=== PATIENT | male | born 1970 | race American Indian/Alaskan Native ===

== ENCOUNTER 2019-03-28 18:57 | Emergency (ER) | payer SELFPAY ==
[~2019-03-28 18:57] MED LIST: EPINEPHrine 1:10,000 1 MG/10 ML SYRINGE ONE; NALOXONE 2 MG/2 ML INJ ONE; SODIUM BICARB 8.4% 50 MEQ/50 ML SYRINGE IV ONE
[2019-03-28] MEDS ORDERED: SODIUM CHLORIDE 0.9% 1000 ML 2,000 ML ONE (19:10)
[2019-03-28] MEDS ORDERED: NORepinephrine/NS 4 MG-250 ML 4 MG/250 ML BAG IV ONE (19:18)
[2019-03-28] MEDS ORDERED: SODIUM CHLORIDE 0.9% 1000 ML 1,000 ML IV ONE ×4 (19:30→23:45)
[2019-03-28] MEDS ORDERED: DOPamine/D5W 800 MG/250 ML 800 MG/250 ML BAG IV ONE (19:32)
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
[2019-03-28] MEDS ORDERED: NORepinephrine/NS 4 MG-250 ML 4 MG/250 ML BAG IV SCH (20:00)
--- NOTE | 2019-03-28 20:04 | XRay Report ---
CHEST 1 VIEW 7:34 PM INDICATION / CLINICAL INFORMATION: Chest pain and ET tube placement. COMPARISON: None available. FINDINGS: SUPPORT DEVICES: There is an endotracheal tube with the tip 6 cm above the kasey. HEART / MEDIASTINUM: Median sternotomy and heart size at the upper limits of normal. Pulmonary vascul ature is normal. The aorta is normal in caliber. LUNGS / PLEURA: Minimal right basilar subsegmental atelectasis. The lungs are otherwise clear. No pne umothorax. ADDITIONAL FINDINGS: Small metallic density overlying the right lower lateral ribs. IMPRESSION: 1. Endotracheal tube in good position. 2. Mild right basilar subsegmental atelectasis. Signer Name: Lorenzo Su MD Signed: 03/28/2019 7:59 PM Workstation Name: [id number]
[2019-03-28] MEDS ORDERED: ASPIRIN 300 MG RECT SUPP PR ONE (20:12)
[2019-03-28 20:19] LABS: INR 1.46 (0.87-1.13)
[2019-03-28 20:20] LABS: Partial Thromboplastin Time 39.8 Sec. (24.2-36.6)
[2019-03-28 20:39] LABS: Creatine Kinase MB 5.1 ng/mL (0.0-4.0)
[2019-03-28 20:40] LABS: Alanine Aminotransferase 221 units/L (7-56); Albumin 3.6 g/dL (3.9-5)
[2019-03-28 20:41] LABS: BUN/Creatinine Ratio 16; Blood Urea Nitrogen 21 mg/dL (9-20); Calcium 9.2 mg/dL (8.4-10.2); Hemolysis Index 13
[2019-03-28 21:07] LABS: Bilirubin,Direct < 0.2 mg/dL (0-0.2)
[2019-03-28 21:21] LABS: ABG Base Excess -8.4 mmol/L (-2.0-3.0); ABG HCO3 21.7 mmol/L (20.0-26.0); ABG Methemoglobin 0.7 % (0.0-1.5); ABG Oxygen Saturation 99.5 % (95.0-99.0); ABG PCO2 66.7 mm Hg
[2019-03-28] MEDS ORDERED: ONDANSETRON 4 MG/2 ML INJ IV PRN (21:24)
[2019-03-28] MEDS ORDERED: ACETAMINOPHEN 325 MG TAB PO PRN (21:24)
[2019-03-28] MEDS ORDERED: DEXTROSE 50% IN WATER (25GM) 50 ML SYRINGE IV PRN (21:45)
[2019-03-28 21:46] LABS: ABG PH 7.129 pH Units (7.350-7.450); ABG PO2 417.9 mm Hg (80.0-90.0)
[2019-03-28] MEDS ORDERED: hydrALAZINE 20 MG/1 ML INJ IV PRN (21:57)
[2019-03-28] MEDS ORDERED: hydrALAZINE 20 MG/1 ML INJ IV ONE (21:58)
[2019-03-28] MEDS ORDERED: INSULIN LISPRO 100 UNIT/ML SUB-Q SCH (22:00)
[2019-03-28] MEDS ORDERED: FAMOTIDINE 20 MG/2 ML INJ IV SCH (22:00)
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
[2019-03-28 22:20] LABS: Hematocrit 45.3 % (35.5-45.6); Hemoglobin 14.5 gm/dl (11.8-15.2); Mean Corpuscular HGB Conc 32 % (32-34); Mean Corpuscular Volume 86 fl (84-94); Platelet Count 143 K/mm3 (140-440); Red Cell Distribution Width 14.5 % (13.2-15.2)
[2019-03-28] MEDS ORDERED: hydrALAZINE 20 MG/1 ML INJ ONE (22:20)
[2019-03-28] MEDS ORDERED: FAMOTIDINE 20 MG/2 ML INJ IV ONE (22:20)
[2019-03-28 22:55] LABS: Band Neutrophils # (Manual) 1.7 K/mm3; Basophils % (Manual) 0 % (0.0-1.8); Eosinophils % (Manual) 0 % (0.0-4.3); Total Cells Counted 100
[2019-03-28 22:56] LABS: Anisocytosis 1+
[2019-03-28] MEDS ORDERED: SODIUM CHLORIDE 0.45% 1000 ML 1,000 ML IV SCH (23:00)
--- NOTE | 2019-03-28 23:17 | Cat Scan Report ---
CT HEAD WITHOUT CONTRAST INDICATION / CLINICAL INFORMATION: AMS. Cardiac arrest TECHNIQUE: All CT scans at this location are performed using CT dose reduction for ALARA by means of automated e xposure control. COMPARISON: None available. FINDINGS: HEMORRHAGE: There is bilateral subarachnoid hemorrhage within the sulci and basilar cisterns. EXTRA-AXIAL SPACES: Effaced. VENTRICULAR SYSTEM: Within normal limits. No significant mass effect at this time. CEREBRAL PARENCHYMA: Diffuse loss of the morfin-white differentiation throughout both cerebral hemisphe res and the cerebellum. Cerebral edema. MIDLINE SHIFT OR HERNIATION: No midline shift but mild cerebellar tonsil herniation. CEREBELLUM / BRAINSTEM: Cerebellar edema with loss of morfin-white differentiation. ORBITS: Normal as visualized. SOFT TISSUES of HEAD: No significant abnormality. CALVARIUM: No significant abnormality. PARANASAL SINUSES / MASTOID AIR CELLS: Normal as visualized. ADDITIONAL FINDINGS: None. IMPRESSION: 1. Bilateral subarachnoid hemorrhage with diffuse cerebral edema and loss of morfin-white differentiati on. 2. Mild cerebellar tonsil herniation. CRITICAL RESULT: Time of Discovery (SKOOG MACHINE OPERATOR/CDT): 10:05 PM Time of Communication (SKOOG MACHINE OPERATOR/CDT): 10:09 PM Licensed Practitioner Receiving Report: Dr. Venegas in the ED Read Back Performed: Yes. Signer Name: Fracisco Steel MD Signed: 03/28/2019 11:12 PM Workstation Name: [id number]
[2019-03-28] MEDS ORDERED: SODIUM CHLORIDE 0.9% 1000 ML 1,000 ML ONE (23:41)
[2019-03-28] MEDS ORDERED: SODIUM CHLORIDE 0.9% 1000 ML 1,000 ML IV SCH (23:45)
--- NOTE | 2019-03-29 00:21 | Cat Scan Report ---
CTA neck without and with intravenous contrast material CLINICAL HISTORY: MAIN: AMS.100 ML OMNIPAQUE 350 TECHNIQUE: Following acquisition of a timing bolus 0.625 mm thick contiguous axial scans were obtained from aort ic arch to the skull base during rapid bolus intravenous contrast infusion. In addition to evaluation of axial source images multiplanar reconstructions were produced and reviewed for this report. 3-D M IP reconstructions were produced. These were also reviewed for this report. FINDINGS: No abnormalities are seen at the origins of the great vessels. Common carotid arteries, carotid bifurcations and cervical portions of the internal carotid arteries all have a normal appearance. There is no indication of hemodynamically significant stenosis. Normal and symmetrical vertebral arteries are present. There is no indication of stenosis along the c ourse of the vertebral arteries. Both vertebral arteries contribute to the basilar artery origin. The basilar artery has an unremarkable appearance. The degree of stenosis, if any, is determined utilizing NASCET like criteria. In this case there is no indication of hemodynamically significant stenosis at the carotid bifurcations or elsewhere. Evaluation of the nonvascular soft tissue structures is remarkable for the presence of an endotrachea l tube. Tube tip is located about 5 cm above the kasey.. Fluid accumulation in the nasopharynx and o ropharynx secondary to the presence of the endotracheal tube. There is no indication of cervical lymp hadenopathy. No abnormalities are seen along the course of the airway. Visualized portions of the par otid glands and the submandibular salivary glands have a normal appearance. Thyroid gland has a edd l appearance. Evaluation of the lung apices reveals bullous changes and biapical parenchymal scarring . Evaluation of the cervical spine is remarkable for bridging anterior osteophytes results in fusion at the C3-4 level. IMPRESSION: 1. No indication of hemodynamically significant stenosis at the carotid bifurcations or elsewhere. Contrast dose report: Omnipaque 350: 100 ml, administered intravenously All CT examinations performed at this facility utilize modulated dose reduction, iterative reconstruc tion or weight-based dosing, as appropriate, to obtain a radiation dose which is as low as can reason ably be achieved. Signer Name: Kevin Bishop MD Signed: 03/29/2019 12:16 AM Workstation Name: [id number]
[2019-03-29] MEDS ORDERED: LORazepam 2 MG/ML VIAL IV PRN (00:23)
--- NOTE | 2019-03-29 00:31 | Cat Scan Report ---
CTA head with intravenous contrast CLINICAL HISTORY: Intracranial hemorrhage TECHNIQUE: 0.625 mm thick contiguous axial scans were obtained from the skull base to the skull vertex during ra pid bolus administration of intravenous contrast material. Multiplanar reconstructions were produced in the coronal and sagittal planes. In addition 3 plane MIP instructions were produced and reviewed f or this report. The axial source images and reconstructed images were reviewed for this report. All CT scans at this location are performed using CT dose reduction for ALARA by means of automated e xposure control. FINDINGS: Findings indicate the presence of vasospasm. The proximal M1 and A1 segments of the middle cerebral a rteries and anterior cerebral arteries are diminished in caliber. The left A1 segment of the anterior cerebral artery has a beaded appearance consistent with vasospasm. These vessels return to more norm al caliber distally. There is no indication of large vessel occlusion. Decreased opacification of the dural venous sinuses is noted. While this could be due to rapid scan a cquisition shortly after initiation of contrast bolus, the possibility of prolonged intracranial circ ulation time should also be considered. This could be due to extensive cerebral edema as described on head CT reported separately. While head CT findings suggest the presence of blood in the subarachnoid space it is also possible th at the increased attenuation in throughout subarachnoid space and the basilar cisterns, sylvian ciste rns, sylvian fissures and suprasellar cistern may be due to intravascular blood made to appear abnorm ally dense secondary to adjacent edematous brain. There is no evidence of aneurysm or other vascular malformation. IMPRESSION: 1. Findings of vasospasm involving the proximal A1 and M1 segments of the middle and anterior cerebra l arteries as described above. 2. Decreased contrast opacification of the dural venous sinuses suggests the possibility of prolonged intercranial circulation time. 3. Diffuse cerebral edema with effacement of cortical sulci, diminutive caliber of the ventricular sy stem and diffuse loss of morfin-white distinction. 4. No indication of aneurysm or arteriovenous malformation. CONTRAST DOSE REPORT: Omnipaque 350: 100 ml administered intravenously. Signer Name: Kevin Bishop MD Signed: 03/29/2019 12:27 AM Workstation Name: [id number]
[2019-03-29] MEDS ORDERED: NORepinephrine/NS 4 MG-250 ML 4 MG/250 ML BAG IV SCH (01:00)
--- NOTE | 2019-03-29 01:05 | Discharge Summary ---
Providers - Providers Date of Admission: 03/28/19 21:24 Date of discharge: 03/29/19 Attending physician: LIONEL FOLEY 03/28/19 22:05 Consult to Cardiology [CONS] Routine Consulting Provider: SHYANNE MUIR Reason For Exam: CARDIAC ARREST Consult to Physician [CONS] Routine Comment: Consulting Provider: SHAWN DUPREE Physician Instructions: Reason For Exam: HYPOXIA 03/28/19 22:07 Consult to Dietitian/Nutrition [CONS] Routine Physician Instructions: Reason For Exam: Reason for Consult: Write/Manage Tube Feeding 03/28/19 23:16 Occupational Therapy Evaluate and Treat [CONS] Routine Comment: Reason For Exam: Neuro deficits Physical Therapy Evaluation and Treat [CONS] Routine Comment: Reason For Exam: Neuro deficits [facility] Condition: Critical Pertinent studies: Head CT Scan: Bilateral subarachnoid hemorrhage with diffuse cerebral edema and slight herniation Hospital course: Discharge diagnosis: Acute intracranial hemorrhage with cerebral edema and slight herniation -On hemorrhagic stroke protocol, [facility] -Tele-neurology consulted and recommendation is to transfer pt to a higher level of care facility with neurosurgery service Status post asystole cardiac arrest -Patient successfully resuscitated -cont serial troponin -On statin, no aspirin due to acute bleed -echo pending Acute respiratory failure with hypoxia -status post intubation on MV Acute metabolic/toxic encephalopathy -likely 2/2 acute stroke Hypovolemic shock -on IV pressor, will monitor BP Transaminitis/Coagulopathy -likely due to acute process, will monitor Hyperglycemia -? DM, will check hba1c level -on SSI and IVF Metabolic acidosis -on IVF, will monitor Reported h/o Asthma -acute exacerbation not suspected Disp: Pt was transferred to [facility] Disposition: DC/TX-70 ANOTHER TYPE HLTHCARE Time spent for discharge: 40 minutes Core Measure Documentation - Palliative Care Palliative Care/ Comfort Measures: Not Applicable - Core Measures Any of the following diagnoses?: stroke - Stroke Discharge Requirements Statin for LDL = or >70 mg/dl on DC: Yes Anticoag for atrial fib/atrial flutter: Not Applicable Antithrombotic for ischemic stroke: No Reason for no antithrombotic on DC: Medical Contraindication (bleed) Exam - Physical Exam Narrative exam: General appearance: Present: no acute distress - EENT Eyes: Present: irregular pupil (nonreactive pupils) ENT: other (pt is intubated) - Neck Neck: Present: supple - Respiratory Respiratory effort: normal Respiratory: bilateral: CTA, diminished - Cardiovascular Rhythm: regular (with sinus tachycardia) Heart Sounds: Present: S1 & S2 - Extremities Extremities: No edema Peripheral Pulses: within normal limits - Abdominal General gastrointestinal: Present: soft, non-tender, normal bowel sounds Male genitourinary: Present: deferred - Rectal Rectal Exam: deferred - Integumentary Integumentary: Present: warm, dry (midline abdominal healing wounds noted) - Psychiatric Psychiatric: other (could not be obtained because patient is intubated and unresponsive) - Neurologic Neurologic: other (could not be obtained because patient is intubated and unresponsive) - Constitutional Vitals: Temp Pulse Resp BP Pulse Ox 94.8 F L 132 H 27 H 116/73 97 03/28/19 20:00 03/28/19 23:41 03/28/19 23:41 03/28/19 23:41 03/28/19 23:41 - Respiratory Respiratory: bilateral: CTA Plan
[2019-03-29 01:19] LABS: Creatine Kinase MB 114.4 ng/mL (0.0-4.0)
[2019-03-29 01:25] VITALS: BP 80/44
[2019-03-29 01:36] LABS: Bilirubin,Urine NEG (Negative); Blood,Urine MOD (Negative); Color,Urine Amber (Yellow); Mucus,Urine FEW /HPF; Urobilinogen,Urine < 2.0 mg/dL (<2.0)
[2019-03-29 01:43] LABS: Benzodiazepines Screen,Urine PRESUMPTIVE NEGATIVE; Methadone Screen,Urine PRESUMPTIVE NEGATIVE; Opiate Screen,Urine PRESUMPTIVE NEGATIVE
[2019-03-29 02:07] LABS: Amphetamine Screen,Urine PRESUMPTIVE POSITIVE; Cannabinoid Screen,Urine PRESUMPTIVE POSITIVE; Cocaine Screen,Urine PRESUMPTIVE POSITIVE
[2019-03-29] MEDS ORDERED: ASPIRIN 300 MG RECT SUPP PR SCH (10:00)
[2019-03-29] MEDS ORDERED: ENOXAPARIN 40 MG/0.4 ML INJ SUB-Q SCH (10:00)
== END 2019-03-29 02:10 | disposition other institution (70) ==
LOC: ED 18:57 → CC1 21:24 → UNDOADMIN 21:24 → ED 03-29 02:10
DX: I46.9 Cardiac arrest, cause unspecified (principal)
CPT/HCPCS: 31500; 36415; 36556; 70450; 70496; 70498; 71045; 80048; 80076; 80307; 81001; 82550; 82553; 82803; 82962; 83880; 84484; 85007; 85025; 85379; 85610; 85730; 86850; 86900; 86901; 87040; 87086; 92950; 93005; 93010; 96365; 96366; 96375; 99285; J0171; J0360; J1265; J2310; J7030; Q9967; 94002; G0378